=== PATIENT | male | born 1950 | race Caucasian/White ===

== ENCOUNTER 2019-12-24 11:10 | Emergency (ER) | payer OTHER, MEDICARE ==
[~2019-12-24] VITALS: Ht 172.7 cm; Wt 85.0 kg
[2019-12-24] MEDS ORDERED: AMPICILLIN/SULBACTAM 3 GM in SODIUM CHLORIDE 0.9% 100 ML IV ONE (11:30)
[2019-12-24] MEDS ORDERED: SODIUM CHLORIDE 0.9% 1,000ML IVBOLUS ONE (11:30)
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
--- NOTE | 2019-12-24 11:43 | NUR ---
blood cultures drawn prior abx iv
[2019-12-24 12:04] LABS: BASOPHILS % (AUTO) 0 % (0-1); EOSINOPHILS % (AUTO) 0 % (1-7); LYMPHOCYTES % (AUTO) 12 % (22-44); MEAN CORPUSCULAR HEMOGLOBIN 37.1 pg (27.5-34.5); MEAN CORPUSCULAR HGB CONC 34.3 g/dL (33.2-36.2); MEAN PLATELET VOLUME 8.3 fL (7.4-10.4); MONOCYTES % (AUTO) 6 % (2-9); NEUTROPHILS % (AUTO) 81 % (42-75); PLATELET COUNT 158 x10^3/uL (130-400); RED BLOOD COUNT 4.29 x10^6/uL (4.38-5.82); RED CELL DISTRIBUTION WIDTH 13.5 % (9.4-14.8)
[2019-12-24 12:11] LABS: ANION GAP 11 mmol/L (5-15); CALCIUM 9.1 mg/dL (8.5-10.1); CHLORIDE 104 mmol/L (98-107); CREATININE 0.94 mg/dL (0.7-1.3)
[2019-12-24] MEDS ORDERED: OMNIPAQUE 350 MG/ML, 150 ML BOTTLE ONE (12:15)
[2019-12-24 12:48] VITALS: BP 145/82
[2019-12-24 13:05] LABS: ANISOCYTOSIS 1+; MD MORPH REVIEW ONLY
[2019-12-24 13:07] LABS: <PLATELET ESTIMATE> ADEQUATE
[2019-12-24 13:08] LABS: LARGE PLATELETS 1+
--- NOTE | 2019-12-24 13:27 | NUR ---
PT RESTING COMFORTABLE. IVF COMPLETE. NOT IN DISTRESS. IMAGES COMPLETE
--- NOTE | 2019-12-24 13:49 | NUR ---
RECOMENDED ADMISSION, THOUGH PT REFUSES AND WANTS TO BE DC HOME FROM ER.
--- NOTE | 2019-12-24 13:56 | NUR ---
Patient/Caregiver given discharge instructions and they have confirmed that they understand the instructions. Patient ambulatory with steady gait.
== END 2019-12-24 13:58 | disposition home or self-care (01) ==
LOC: ED 12:13
DX: L03.115 Cellulitis of right lower limb (principal)
CPT/HCPCS: 36415; 73701; 80048; 82040; 83605; 84145; 85025; 87040; 93971; 96365; 99285; J0295; J7030; Q9967